=== PATIENT | female | born 1975 | race Caucasian/White ===

== ENCOUNTER 2019-05-10 10:27 | Emergency (ER) | payer OTHER ==
[~2019-05-10] VITALS: Ht 172.7 cm; Wt 108.9 kg
[~2019-05-10 10:27] MED LIST: PENICILLIN V P500 MG PO; ULTRAM 50MG TAB50 MG PO
[2019-05-10] MEDS ORDERED: BUSPIRONE HCL10 MG PO (10:37)
[2019-05-10] MEDS ORDERED: CYMBALTA60 MG PO (10:37)
[2019-05-10] MEDS ORDERED: FLONASE 0.05%50 MCG NASAL (10:59)
[2019-05-10] MEDS ORDERED: SUDOGEST30 MG PO (10:59)
[2019-05-10 11:08] VITALS: BP 140/83
== END 2019-05-10 11:08 | disposition home or self-care (01) ==
LOC: ER 10:27
DX: H69.91 Unspecified Eustachian tube disorder, right ear (principal); J06.9 Acute upper respiratory infection, unspecified; F17.210 Nicotine dependence, cigarettes, uncomplicated; Z88.5 Allergy status to narcotic agent; Z90.710 Acquired absence of both cervix and uterus

== ENCOUNTER 2020-01-23 16:45 | Emergency (ER) | payer OTHER ==
[~2020-01-23] VITALS: Ht 172.7 cm; Wt 113.0 kg
[~2020-01-23 16:45] MED LIST changes: +BUSPIRONE HCL10 MG PO; +CYMBALTA60 MG PO; +FLONASE 0.05%50 MCG NASAL; +SUDOGEST30 MG PO
[2020-01-23] MEDS ORDERED: BUSPAR30 MG PO (17:10)
[2020-01-23] MEDS ORDERED: VALIUM2 MG PO (18:41)
[2020-01-23] MEDS ORDERED: MECLIZINE HCL25 M1 PO (18:41)
[2020-01-23 19:14] VITALS: BP 115/66
--- NOTE | 2020-01-24 08:41 | EKG ---
[facility] [place] [address] ELECTROCARDIOGRAM REPORT Name: FERNANDO ECHEVERRIA Room #: [facility] [id number] Admission: 01/23/20 Attend Phys: Discharge: 01/23/20 Date of : 71 Report #: [id number] THIS REPORT FOR: cc: LORRI - Yessica family physician/PCP LORRI - Yessica family physician/PCP Donnie Romano MD [facility] THIS REPORT FOR: //name// [facility] ED Test Date: 2020-01-23 Test Time: 17:32:29 Pat Name: FERNANDO ECHEVERRIA Department: Room: Gender: Body Presser: CASI : 1975 Requested By: Lonnie Moore Order Number: [id number] MD: Donnie Romano Measurements Intervals [place] Rate: 89 P: 24 [place]: 137 QRS: 30 QRSD: 84 T: 32 QT: 351 QTc: 428 Interpretive Statements Sinus rhythm Normal tracing No previous ECG available for comparison Electronically Signed On 01-24-2020 8:40:34 [employer] by Donnie Romano [email or web address] <ELECTRONICALLY SIGNED> By: Donnie Romano MD, [facility] 01/24/20 0840 31 31 Donnie Romano MD, [facility] /EPI
== END 2020-01-23 19:15 | disposition home or self-care (01) ==
LOC: ER 16:45
DX: S09.90XA Unspecified injury of head, initial encounter (principal); H81.13 Benign paroxysmal vertigo, bilateral; H93.13 Tinnitus, bilateral; E66.9 Obesity, unspecified; F17.210 Nicotine dependence, cigarettes, uncomplicated; Z68.37 Body mass index [BMI] 37.0-37.9, adult; Z90.710 Acquired absence of both cervix and uterus; Z88.6 Allergy status to analgesic agent; W22.8XXA Striking against or struck by other objects, initial encounter; Y93.89 Activity, other specified; Y92.89 Other specified places as the place of occurrence of the external cause; Y99.8 Other external cause status